=== PATIENT | male | born 1970 | race Caucasian/White ===

== ENCOUNTER 2019-08-22 08:00 | Outpatient (CLI) | payer BC, OTHER ==
[2019-08-22 12:17] LABS: BASOPHILS % (AUTO) 0.6 %; EOSINOPHILS # (AUTO) 0.1 10^3/uL (0.0-0.7); EOSINOPHILS % (AUTO) 1.8 %; HGB - HEMOGLOBIN 15.8 g/dL (14.0-18.0); LYMPHOCYTES # (AUTO) 2.1 10^3/uL (1.5-3.5); LYMPHOCYTES % (AUTO) 38.7 %; MEAN CORPUSCULAR HEMOGLOBIN 31.1 pg (27.0-31.0); MEAN CORPUSCULAR HGB CONC 32.6 g/dL (32.0-36.0); MEAN CORPUSCULAR VOLUME 95.5 fL (80.0-94.0); MEAN PLATELET VOLUME 10.4 fL (7.4-11.4); MONOCYTES # (AUTO) 0.6 10^3/uL (0.0-1.0); MONOCYTES % (AUTO) 10.3 %; NEUTROPHILS # (AUTO) 2.6 10^3/uL (1.5-6.6); NEUTROPHILS % (AUTO) 48.4 %; PLT - PLATELET COUNT 245 10^3/uL (130-450); RED BLOOD COUNT 5.08 10^6/uL (4.70-6.10); RED CELL DISTRIBUTION WIDTH 11.8 % (12.0-15.0); WHITE BLOOD COUNT 5.5 x10^3/uL (4.8-10.8)
[2019-08-22 13:00] LABS: ALBUMIN 4.3 g/dL (3.2-5.5); ALBUMIN/GLOBULIN RATIO 1.4 (1.0-2.2); ALKALINE PHOSPHATASE 43 IU/L (42-121); ALT ALANINE AMINOTRANSFERASE 22 IU/L (10-60); AST ASPARTATE AMINOTRANSFERASE 20 IU/L (10-42); BILIRUBIN,TOTAL 0.8 mg/dL (0.2-1.0); BUN - BLOOD UREA NITROGEN 10 mg/dL (6-20); CALCIUM 9.4 mg/dL (8.5-10.3); CARBON DIOXIDE - CO2 26 mmol/L (21-32); CHLORIDE 101 mmol/L (101-111); CHOL/HDL RATIO 5.7 (<5.0); CHOLESTEROL 187 mg/dL; GFR - MDRD 79 (>89); GLUCOSE 88 mg/dL (70-100); HDL CHOLESTEROL 33 mg/dL; SODIUM 136 mmol/L (135-145); TOTAL PROTEIN 7.3 g/dL (6.7-8.2)
[2019-08-22 13:55] LABS: LDL CHOLESTEROL,DIRECT 79 mg/dL; LDLD/HDL RATIO 2.4 (<3.6)
== END 2019-08-22 23:59 | disposition home or self-care (01) ==
LOC: LAB.WCP 08:00
PROVIDERS: ATTEND Family Medicine
DX: E78.5 Hyperlipidemia, unspecified (principal); K21.9 Gastro-esophageal reflux disease without esophagitis; E87.5 Hyperkalemia
CPT/HCPCS: 36415; 80053; 80061; 83721; 84443; 85025

== ENCOUNTER 2021-04-22 11:18 | Outpatient (CLI) | payer OTHER ==
--- NOTE | 2021-04-22 14:14 | XRAY Report ---
PROCEDURE: Wrist 3 View RT INDICATIONS: CARPAL TUNNEL SYNDROME OF RT WRIST TECHNIQUE: 3 views of the wrist were acquired. COMPARISON: None FINDINGS: Bones: No fractures or dislocations. Mild osteoarthritic changes along radial aspect of right wrist are seen. No suspicious bony lesions. Scaphoid view: Scaphoid is intact. No evidence of avascular necrosis. Soft tissues: No suspicious soft tissue calcifications. IMPRESSION: Mild the wrist joint osteoarthritis. No fracture or dislocation. No gross soft tissue abnormality. Reviewed by: Lux Parekh MD on 04/22/2021 2:13 PM PST Approved by: Lux Parekh MD on 04/22/2021 2:13 PM PST Station ID: [id number]
== END 2021-04-22 11:19 | disposition home or self-care (01) ==
LOC: DI 11:18
PROVIDERS: ATTEND Family Medicine
DX: M19.031 Primary osteoarthritis, right wrist (principal)

== ENCOUNTER 2021-05-21 08:00 | Outpatient (CLI) | payer BC ==
[2021-05-21 18:19] LABS: BASOPHILS % (AUTO) 0.2 %; HCT - HEMATOCRIT 42.3 % (42.0-52.0); HGB - HEMOGLOBIN 13.8 g/dL (14.0-18.0); LYMPHOCYTES % (AUTO) 15.7 %; MEAN CORPUSCULAR HEMOGLOBIN 30.5 pg (27.0-31.0); MEAN CORPUSCULAR HGB CONC 32.6 g/dL (32.0-36.0); MEAN CORPUSCULAR VOLUME 93.6 fL (80.0-94.0); MEAN PLATELET VOLUME 9.8 fL (7.4-11.4); MONOCYTES # (AUTO) 0.3 10^3/uL (0.0-1.0); MONOCYTES % (AUTO) 5.3 %; NEUTROPHILS % (AUTO) 78.3 %; PLT - PLATELET COUNT 421 10^3/uL (130-450); RED BLOOD COUNT 4.52 10^6/uL (4.70-6.10); RED CELL DISTRIBUTION WIDTH 11.8 % (12.0-15.0); WHITE BLOOD COUNT 6.4 x10^3/uL (4.8-10.8)
[2021-05-21 18:37] LABS: ALBUMIN 3.7 g/dL (3.2-5.5); ALBUMIN/GLOBULIN RATIO 0.9 (1.0-2.2); BILIRUBIN,TOTAL 0.5 mg/dL (0.2-1.0); CALCIUM 9.6 mg/dL (8.5-10.3); CREATININE 0.8 mg/dL (0.6-1.2); POTASSIUM 4.3 mmol/L (3.5-5.0); TOTAL PROTEIN 7.9 g/dL (6.7-8.2); URIC ACID 5.6 mg/dL (2.6-7.2)
[2021-05-21 18:49] LABS: THYROID STIMULATING HORMONE 0.66 uIU/mL (0.34-5.60)
[2021-05-21 19:30] LABS: RHEUMATOID FACTOR NEGATIVE (Negative)
[2021-05-23 14:41] LABS: ANA SCREEN NEGATIVE (NEGATIVE)
== END 2021-05-21 23:59 | disposition home or self-care (01) ==
LOC: LAB.WCP 08:00
PROVIDERS: ATTEND Physician Assistant
DX: M06.4 Inflammatory polyarthropathy (principal)
CPT/HCPCS: 36415; 80053; 84443; 84550; 85025; 85651; 86038; 86140; 86430

== ENCOUNTER 2021-10-09 09:47 | Outpatient (CLI) | payer MEDICARE ==
--- NOTE | 2021-10-09 14:19 | DEXA Report ---
PROCEDURE: Dexa Spine and/or Hip INDICATIONS: OSTEOPOROSIS TECHNIQUE: Dual energy x-ray absorptiometry (DXA) was performed on a FFWD System. Regions measur ed are the AP Spine, femoral neck, and if needed forearm. COMPARISON: None. FINDINGS: Lumbar Spine: Bone Mineral Density 1.195 g/cm/cm,T score -0 point, normal Left Hip: Bone Mineral Density 0.977 g/cm/cm,T score -0.9, normal Left Femoral Neck: Bone Mineral Density 0.892 g/cm/cm, T score -1.4, mild osteopenia (T score greater or equal to -1.0: NORMAL) (T score from -1.1 to -2.4: OSTEOPENIA) (T score less than or equal to -2.5 to: OSTEOPOROSIS) Impression: Mild osteopenia within the left femoral neck. Patients with diagnosis of osteoporosis or osteopenia should have regular bone mineral density assess ment. For those eligible for Medicare, routine testing is allowed once every 2 years. Testing frequ ency can be increased for patients who have rapidly progressing disease or for those who are receivin g medical therapy to restore bone mass. Reviewed by: Gaby Brown MD on 10/09/2021 2:17 PM PDT Approved by: Gaby Brown MD on 10/09/2021 2:17 PM PDT Station ID: [id number]
== END 2021-10-09 09:48 | disposition home or self-care (01) ==
LOC: DI 09:47
PROVIDERS: ATTEND Internal Medicine Rheumatology
DX: M85.88 Other specified disorders of bone density and structure, other site (principal)

== ENCOUNTER 2022-08-06 08:15 | Outpatient (CLI) | payer MEDICARE ==
[2022-08-06 11:58] LABS: BASOPHILS % (AUTO) 0.5 %; EOSINOPHILS # (AUTO) 0.1 10^3/uL (0.0-0.7); EOSINOPHILS % (AUTO) 1.7 %; HCT - HEMATOCRIT 48.5 % (42.0-52.0); HGB - HEMOGLOBIN 15.9 g/dL (14.0-18.0); LYMPHOCYTES # (AUTO) 2.2 10^3/uL (1.5-3.5); LYMPHOCYTES % (AUTO) 25.9 %; MEAN CORPUSCULAR HEMOGLOBIN 32.5 pg (27.0-31.0); MEAN CORPUSCULAR HGB CONC 32.8 g/dL (32.0-36.0); MEAN CORPUSCULAR VOLUME 99.2 fL (80.0-94.0); MEAN PLATELET VOLUME 10.2 fL (7.4-11.4); MONOCYTES # (AUTO) 0.6 10^3/uL (0.0-1.0); MONOCYTES % (AUTO) 6.9 %; NEUTROPHILS # (AUTO) 5.5 10^3/uL (1.5-6.6); NEUTROPHILS % (AUTO) 64.5 %; PLT - PLATELET COUNT 266 10^3/uL (130-450); RED BLOOD COUNT 4.89 10^6/uL (4.70-6.10); RED CELL DISTRIBUTION WIDTH 12.3 % (12.0-15.0); WHITE BLOOD COUNT 8.4 x10^3/uL (4.8-10.8)
[2022-08-06 12:33] LABS: ALBUMIN 4.2 g/dL (3.2-5.5); ALBUMIN/GLOBULIN RATIO 1.6 (1.0-2.2); ALKALINE PHOSPHATASE 36 IU/L (42-121); ALT ALANINE AMINOTRANSFERASE 18 IU/L (10-60); AST ASPARTATE AMINOTRANSFERASE 19 IU/L (10-42); BILIRUBIN,TOTAL 1.2 mg/dL (0.2-1.0); BUN - BLOOD UREA NITROGEN 12 mg/dL (6-20); CARBON DIOXIDE - CO2 33 mmol/L (21-32); CHLORIDE 99 mmol/L (101-111); CHOL/HDL RATIO 4.4 (<5.0); CHOLESTEROL 204 mg/dL; GFR - MDRD 78 (>89); GLUCOSE 94 mg/dL (70-100); HDL CHOLESTEROL 46 mg/dL; LDL CHOLESTEROL,CALCULATED 121 mg/dL; LDL/HDL RATIO 2.6 (<3.6); POTASSIUM 3.8 mmol/L (3.5-5.0); SODIUM 136 mmol/L (135-145); TOTAL PROTEIN 6.9 g/dL (6.7-8.2); TRIGLYCERIDES 186 mg/dL; VLDL CHOLESTEROL 37 mg/dL
[2022-08-06 12:43] LABS: THYROID STIMULATING HORMONE 2.79 uIU/mL (0.34-5.60)
== END 2022-08-06 08:16 | disposition home or self-care (01) ==
LOC: LAB.N 08:15
PROVIDERS: ATTEND Family Medicine
DX: E78.5 Hyperlipidemia, unspecified (principal); G60.9 Hereditary and idiopathic neuropathy, unspecified; R03.0 Elevated blood-pressure reading, without diagnosis of hypertension; M79.7 Fibromyalgia; F42.9 Obsessive-compulsive disorder, unspecified; G56.03 Carpal tunnel syndrome, bilateral upper limbs; M17.11 Unilateral primary osteoarthritis, right knee; K21.9 Gastro-esophageal reflux disease without esophagitis; G44.209 Tension-type headache, unspecified, not intractable; G43.909 Migraine, unspecified, not intractable, without status migrainosus; Z79.52 Long term (current) use of systemic steroids
CPT/HCPCS: 36415; 80053; 80061; 83721; 84443; 85025

== ENCOUNTER 2022-11-11 13:10 | Outpatient (CLI) | payer MEDICARE ==
--- NOTE | 2022-11-11 16:30 | XRAY Report ---
PROCEDURE: Foot 3 View BILAT INDICATIONS: ARTHROPATHY TECHNIQUE: 3 views of each foot were acquired. COMPARISON: None. FINDINGS: Bones: No fractures or dislocations. No suspicious bony lesions. Soft tissues: No suspicious soft tissue calcifications or masses. IMPRESSION: No radiographic evidence of significant osteoarthritis or inflammatory arthropathy. Reviewed by: Fior Brown MD on 11/11/2022 3:28 PM ALICIA Approved by: Fior Brown MD on 11/11/2022 3:28 PM [id number] Station ID: [id number]
--- NOTE | 2022-11-11 17:47 | XRAY Report ---
PROCEDURE: SI Joints INDICATIONS: ARTHROPATHY TECHNIQUE: 3 views of the sacroiliac joints were acquired. COMPARISON: None FINDINGS: Bones: Right worse than left bilateral sacroiliac joint osteoarthritic changes are seen with joint s pace narrowing and subchondral sclerosis. No bony erosions or ankylosis. No suspicious bony lesions. No fractures. Soft tissues: Overlying bowel gas pattern is normal. No suspicious soft tissue densities. IMPRESSION: Right worse than left bilateral sacroiliac joint osteophyte is. No bony erosion or ankylosis. No frac ture or dislocation. Reviewed by: Lux Parekh MD on 11/11/2022 5:46 PM PDT Approved by: Lxu Parekh MD on 11/11/2022 5:46 PM PDT Station ID: [id number]
--- NOTE | 2022-11-11 17:48 | XRAY Report ---
PROCEDURE: Hand 3 View BILAT INDICATIONS: ARTHROPATHY TECHNIQUE: 3 views of the hand(s) acquired. COMPARISON: None. FINDINGS: Bones: No fractures or dislocations. Mild bilateral juxta articular osteoporosis is seen. No defini te bony erosive changes are noted. No suspicious bony lesions. Soft tissues: No suspicious soft tissue calcifications or masses. IMPRESSION: No acute fracture or dislocation. Mild bilateral juxta-articular osteoporosis. No definite bony erosi ve changes are seen. Reviewed by: Lux Parekh MD on 11/11/2022 5:46 PM PDT Approved by: Lux Parekh MD on 11/11/2022 5:46 PM PDT Station ID: [id number]
--- NOTE | 2022-11-11 17:48 | XRAY Report ---
PROCEDURE: Knee 4 View BILAT INDICATIONS: ARTHROPATHY TECHNIQUE: 4 views of the bilateral knee(s) were acquired. COMPARISON: None. FINDINGS: Bones: No fractures or dislocations. No suspicious bony lesions. Right worse than left bilateral tr icompartmental osteoarthritis is seen more notably in medial femoral tibial compartments. Soft tissues: No knee joint effusion. Chondrocalcinosis in bilateral medial and lateral femoral tibi al compartments are seen. IMPRESSION: Right worse than left bilateral [id number] tricompartmental osteoarthritis most notably in medi al femoral tibial compartments. No fracture or dislocation. No significant joint effusion. Bilateral chondrocalcinosis as above. Reviewed by: Lux Parekh MD on 11/11/2022 5:47 PM PDT Approved by: Lux Parekh MD on 11/11/2022 5:47 PM PDT Station ID: [id number]
== END 2022-11-11 13:11 | disposition home or self-care (01) ==
LOC: DI.N 13:10
PROVIDERS: ATTEND Specialist/Technologist Athletic Trainer
DX: G89.29 Other chronic pain (principal); M47.898 Other spondylosis, sacral and sacrococcygeal region; M81.0 Age-related osteoporosis without current pathological fracture; M17.0 Bilateral primary osteoarthritis of knee; M11.262 Other chondrocalcinosis, left knee; M11.261 Other chondrocalcinosis, right knee